=== PATIENT | male | born 1990 | race Caucasian/White ===

== ENCOUNTER 2024-02-28 08:24 | Emergency (ER) | payer OTHER, MEDICAID, SELFPAY ==
--- NOTE | ~2024-02-28 | XR_ITS ---
XR chest 1V portable Ordering provider: Otf Argueta MD History: 33 years Male with . MID TO LEFT SIDED CP X 2 WEEKS, MOSTLY ANTERIOR . Comparison: None. FINDINGS: MEDIASTINUM: The cardiac silhouette is not enlarged. LUNGS: No infiltrates, effusions or pneumothorax. Slightly prominent bronchovascular markings in the left lower lobe area. OTHER: No free air under the diaphragm. IMPRESSION: No acute cardiopulmonary pathology. Reviewed, dictated and finalized at location A.
--- NOTE | 2024-02-28 08:26 | ECG_ITS ---
Test Date: 2024-02-28 08:29:48 Measurements Intervals [place] Rate: 100 P: 32 MO: 159 QRS: 36 QRSD: 100 T: 11 QT: 368 QTc: 475 Interpretive Statements SINUS TACHYCARDIA NONSPECIFIC T-WAVE ABNORMALITY ABNORMAL RHYTHM ECG No previous ECG available for comparison Electronically Signed On 02-28-2024 17:08:17 CDT by Shane Valdes M.D.
[2024-02-28 08:27] VITALS: BP 144/100; PULSE 98; RESP 13; TEMP 37.1; O2SAT 96
[2024-02-28 08:38] LABS: Basophils Percent Auto 0.3 % (0.2-1.2); Eosinophils Absolute Auto 0.2 K/mm3 (0-0.3); Eosinophils Percent Auto 2.5 % (0-4.4); Hematocrit 46.3 % (42.0-52.0); Immature Granulocyte Absolute 0.01 K/mm3 (0.00-0.031); Immature Granulocyte Percent A 0.2 % (0-0.5); Lymphocytes Absolute Auto 3.44 K/mm3 (0.9-3.2); Lymphocytes Percent Auto 53.7 % (18.3-44.2); Mean Corpuscular HGB Conc 34.6 g/dl (32-36); Mean Corpuscular Hemoglobin 32.5 pg (26-34); Mean Corpuscular Volume 94.1 fl (80-100); Mean Platelet Volume 8.4 fl (7.4-10.4); Monocytes Absolute Auto 0.5 K/mm3 (0.1-0.6); Monocytes Percent Auto 8.1 % (2.6-8.5); Neutrophils Absolute Auto 2.3 K/mm3 (1.3-6.7); Neutrophils Percent Auto 35.2 % (45.5-73.1); Platelet Count Result 283 k/mm3 (150-375); Red Blood Count 4.92 M/mm3 (4.6-6.20); Red Cell Distribution Width 11.6 % (11.5-14.5); White Blood Count 6.4 K/mm3 (4.5-10.0)
[2024-02-28 08:50] LABS: Alanine Aminotransferase 99 U/L (6-50); Albumin Level 4.9 g/dL (3.5-5.1); Alkaline Phosphatase 88 U/L (38-126); Anion Gap 17 mmol/L (4-12); Aspartate Amino Transferase 119 U/L (17-59); Bilirubin,Total 0.5 mg/dL (0.2-1.3); Blood Urea Nitrogen 7 mg/dL (9-20); Calcium 9.1 mg/dL (8.4-10.2); Carbon Dioxide 26 mmol/L (22-30); Chloride 101 mmol/L (98-107); Estimated CRCL calculation 155 ml/min; Estimated Glomerular Filt Rate > 60; Glucose 123 mg/dL (65-110); Potassium 3.7 mmol/L (3.4-5.0); Sodium 144 mmol/L (137-145)
[2024-02-28 08:55] LABS: INR 1.1; Prothrombin Time 14.5 Seconds (11.1-14.7)
[2024-02-28 08:56] LABS: Partial Thromboplastin Time 25.8 Seconds (22.3-36.8)
[2024-02-28 09:01] VITALS: BP 136/99; PULSE 99; RESP 12; O2SAT 95
[2024-02-28 09:05] LABS: Troponin I < 0.012 ng/mL (0.000-0.034)
--- NOTE | 2024-02-28 09:14 | ED.CHESTPAIN ---
HPI - Chest Pain General Chief Complaint: Chest Pain Stated Complaint: chest pain Time Seen by Provider: 02/28/24 08:25 History of Present Illness HPI narrative: 33-year-old male present to the emergency department for evaluation of some left-sided chest pain. Patient reports approximately 6 days ago he had a fall in the shower landed on his right chest. Patient states over the last few days he has had worsening left-sided chest pain at that is worsened with coughing and deep inspiration. Related Data Allergies Allergy/AdvReac Type Severity Reaction Status Date / Time amoxicillin Allergy Unknown Unknown Verified 02/28/24 08:31 Review of Systems Review of Systems: All systems reviewed & are unremarkable except as noted in HPI and below Exam Narrative: APPEARANCE: Well appearing, no pain, no distress, well-nourished. HEAD: normocephalic, atraumatic. EYES: PERRLA/EOMI, conjunctivae clear. NOSE: Normal no drainage EARS:TMS clear with good light reflex. THROAT: Pharynx clear, no exudate. NECK: Supple. No adenopathy, no masses. RESPIRATORY: Airway patent, respirations nonlabored. Clear to auscultation bilaterally, no rales, rhonchi, wheezing. CARDIOVASCULAR: Regular rate and rhythm without murmurs rubs or gallops. ABDOMINAL: Soft, nontender, nondistended, normal bowel sounds MUSCULOSKELETAL: Left-sided chest wall tenderness to palpation NEURO: Alert. Cranial nerves II through XII intact. Grossly intact SKIN: Warm, dry. Normal Color Course Course Emergency Course: Patient was treated for a suspected rib contusion versus rib fracture Vital Signs Vital signs: Vital Signs Temperature 98.8 F 02/28/24 08:27 Pulse Rate 98 02/28/24 08:27 Respiratory Rate 13 02/28/24 08:27 Blood Pressure 144/100 H 02/28/24 08:27 Pulse Oximetry 96 02/28/24 08:27 Oxygen Delivery Room Air 02/28/24 08:27 Temperature 98.9 F 02/28/24 12:20 Pulse Rate 93 02/28/24 12:20 Respiratory Rate 20 02/28/24 12:20 Blood Pressure 136/101 H 02/28/24 12:20 Pulse Oximetry 95 02/28/24 12:20 Oxygen Delivery Room Air 02/28/24 08:27 MDM - Chest Pain MDM Narrative Medical decision making narrative: 33-year-old male present to the emergency department for evaluation for left-sided chest wall pain. Patient is afebrile with no leukocytosis and a stable hemoglobin of 16. Patient had no abnormalities for his PT and PTT. No significant abnormalities on his CMP patient had negative serial troponins. UA was negative for infection. Chest x-ray shows no evidence of pneumonia, pneumothorax or rib fracture. Suspect a rib contusion secondary to the fall. Patient was provided incentive spirometer and updated on the results of the workup. All questions concerns were addressed patient was comfortable with plan for discharge and close follow-up. Patient was well-appearing at time of discharge. Differential Diagnosis Differential diagnosis: Likely fracture of rib, pneumothorax, stable angina, unstable angina pectoris, atypical chest pain, costochondritis, chest pain and biliary colic Lab Data Attestation: I reviewed the patient's lab results. 02/28/24 08:32 02/28/24 08:32 Labs: Lab Results 02/28/24 02/28/24 02/28/24 Range/Units 08:32 10:01 11:29 WBC 6.4 (4.5-10.0) K/mm3 RBC 4.92 (4.6-6.20) M/mm3 Hgb 16.0 (14.0-18.0) g/dL Hct 46.3 (42.0-52.0) % MCV 94.1 (80-100) fl MCH 32.5 (26-34) pg MCHC 34.6 (32-36) g/dl RDW 11.6 (11.5-14.5) % Plt Count 283 (150-375) k/mm3 MPV 8.4 (7.4-10.4) fl Immature Gran % (Auto) 0.2 (0-0.5) % Neut % (Auto) 35.2 L (45.5-73.1) % Lymph % (Auto) 53.7 H (18.3-44.2) % [place] % (Auto) 8.1 (2.6-8.5) % Eos % (Auto) 2.5 (0-4.4) % Baso % (Auto) 0.3 (0.2-1.2) % Lymph # (Auto) 3.44 H (0.9-3.2) K/mm3 [place] # (Auto) 0.5 (0.1-0.6) K/mm3 Eos # (Auto) 0.2 (0-0.3) K/mm3 Baso # (Auto) 0.0 (0.0
[2024-02-28 10:08] LABS: Add Urine Microscopic? NO; Appearance Urine Clear (Clear); Bilirubin Urine Negative (Negative); Blood Urine Negative (Negative); Color Urine Yellow (Yellow); Glucose Urine UA Negative (Negative); Ketones Urine Negative (Negative); Leukocyte Esterase Ur Negative LEU/UL (Negative); Nitrate Urine Negative (Negative); Protein Urine Negative (Negative); Specific Grav Ur 1.011 (1.001-1.035)
[2024-02-28 11:57] LABS: Troponin I < 0.012 ng/mL (0.000-0.034)
[2024-02-28 12:20] VITALS: BP 136/101; PULSE 93; RESP 20; TEMP 37.2; O2SAT 95
== END 2024-02-28 12:21 | disposition home or self-care (01) ==
PROVIDERS: Emergency Provider Emergency Medicine
DX: R07.89 Other chest pain (principal)
CPT/HCPCS: 36415; 71045; 80053; 81003; 84484; 85025; 85610; 85730; 93005; 99284